=== PATIENT | male | born 1950 | race Caucasian/White ===

== ENCOUNTER 2017-10-31 15:29 | Outpatient (CLI) | payer MEDICARE, BC ==
--- NOTE | 2017-10-31 16:37 | MRI ---
BRAIN MRI WITHOUT CONTRAST: Date: 10/31/17 HISTORY: Memory impairment. Visual hallucination. COMPARISON: None. TECHNIQUE: Brain MRI is performed without intravenous Gadolinium administration. Multisequential, multiplanar im aging is performed. FINDINGS: Hypointensity in the central aspect of the alok noted on the axial gradient echo sequence likely due to remote lacunar infarction with hemosiderin deposition. No parenchymal mass, mass effect, or midline shift. Brain volume is age-appropriate. Cortical allen-wh ite matter differentiation is preserved. Ventricles and sulci are patent and symmetric. Central arterial flow-voids are maintained. Absent restricted diffusion. Calvarium has a normal T1 ma rrow signal intensity. Midline brain parenchymal structures are unremarkable. Paranasal sinus mucosal thickening with partial opacification of the left sphenoid sinus. Adequate ma stoid air cell aeration. IMPRESSION: 1. Absent restricted diffusion. No acute infarct. 2. Age-appropriate atrophy. 3. Remote hemorrhagic lacunar infarct in the alok. POS: [facility]
== END 2017-10-31 15:30 | disposition home or self-care (01) ==
LOC: TBSIIMAG 15:29
PROVIDERS: ATTEND Student in an Organized Health Care Education/Training Program
DX: R44.1 Visual hallucinations (principal); R41.3 Other amnesia
CPT/HCPCS: 70551